=== PATIENT | female | born 1935 | race Caucasian/White ===

== ENCOUNTER 2016-05-18 13:30 | Outpatient (RCR) | payer MEDICARE ==
[~2016-05-18 13:30] MED LIST: ALPR0.25 PO; ASPI-587 PO; CALCIUM; DOCU100T7 PO; LUTEIN; MECLIZINE; MULT-974 PO; NFPRILOC40 PO; ONDA8TAB9 SL; PROP10TA8 PO; SELENIUM; SUCR1TAB PO; TRAM-21 PO; TYLENOL
--- NOTE | 2016-05-18 14:07 | Diagnostic Imaging Report ---
INDICATION: Preop screening prior to surgery for trigeminal neuralgia. PA and lateral views of the chest were obtained. Comparison is made with prior examination from 01/21/16. FINDINGS: The heart size, mediastinal configuration, and pulmonary vascularity are within normal limits. There is no pleural effusion, pneumothorax, or pneumonia. The osseous structures are unremarkable. IMPRESSION: No acute cardiopulmonary abnormality. Dictated by: Dictated on workstation # [id number]
[2016-05-18 15:24] LABS: BASOPHILS % (AUTO) 1 % (0-10); EOSINOPHILS # (AUTO) 0.2 10^3/uL (0.0-0.3); EOSINOPHILS % (AUTO) 3 % (0-10); LYMPHOCYTES # (AUTO) 2.2 X 10^3 (1.0-4.0); LYMPHOCYTES % (AUTO) 37 % (12-44); MEAN CORPUSCULAR HEMOGLOBIN 30 PG (25-34); MEAN CORPUSCULAR HGB CONC 33 G/DL (32-36); MEAN CORPUSCULAR VOLUME 90 FL (80-99); MEAN PLATELET VOLUME 9.5 FL (7.4-10.4); MONOCYTES # (AUTO) 0.5 X 10^3 (0.0-1.0); MONOCYTES % (AUTO) 8 % (0-12); NEUTROPHILS # (AUTO) 3.1 X 10^3 (1.8-7.8); NEUTROPHILS % (AUTO) 52 % (42-75); PLATELET COUNT 235 10^3/uL (130-400); RED CELL DISTRIBUTION WIDTH 12.4 % (10.0-14.5)
[2016-05-18 15:41] LABS: ALANINE AMINOTRANSFERASE 7 U/L (0-55); ALBUMIN 4.6 G/DL (3.2-4.5); ANION GAP 10 MMOL/L (5-14); ASPARTATE AMINO TRANSFERASE 23 U/L (5-34); BILIRUBIN,TOTAL 0.3 MG/DL (0.1-1.0); BLOOD UREA NITROGEN 9 MG/DL (7-18); BUN/CREATININE RATIO 13; CARBON DIOXIDE 26 MMOL/L (21-32); CHLORIDE 97 MMOL/L (98-107); CREATININE SERUM 0.67 MG/DL (0.60-1.30); GFR ESTIMATED > 60; GLUCOSE 109 MG/DL (70-105); SODIUM 133 MMOL/L (135-145); TOTAL PROTEIN 7.2 G/DL (6.4-8.2)
== END 2016-08-16 | disposition home or self-care (01) ==
LOC: LAB 13:30 → EDSTATUS 13:30
PROVIDERS: ATTEND Family Medicine
DX: G50.0 Trigeminal neuralgia (principal); G40.409 Other generalized epilepsy and epileptic syndromes, not intractable, without status epilepticus
CPT/HCPCS: 36415; 71020; 80053; 85025; 93005

== ENCOUNTER → 2017-03-17 | Outpatient (CLI) | payer MEDICARE ==
[~2017-03-17] MED LIST changes: +GADOBUTROL 7.5 MMOL/7.5 ML (GADAVIST) VIAL IV ONE
--- NOTE | 2017-03-17 10:45 | Diagnostic Imaging Report ---
PROCEDURE: MR imaging of the brain with and without contrast. TECHNIQUE: Multiplanar, multisequence MR imaging of the brain was performed with and without contrast. INDICATION: History of melanoma. Right ear and neck pain. Right trigeminal neuralgia. 6 mL of Gadavist is administered intravenously. FINDINGS: There is no diffusion restriction to suggest an acute infarct or other diffusion abnormality. There is mild periventricular and deep white matter T2 hyperintense signal abnormalities without associated edema or mass effect. No associated contrast enhancement seen either. These are somewhat similar to 12/24/2015 without a notable change. No enhancing mass in the brain or extra-axial space to suggest metastatic disease. The central vascular flow-voids appear grossly unremarkable. The internal auditory canals and inner ear structures appear grossly unremarkable. No obvious abnormality in the brainstem or around it seen. This area however is better evaluated when the study is ordered with brain and IAC MRI. The pituitary gland is normal in size. No hypothalamic or pineal region mass. The orbits appear symmetric. The paranasal sinuses appear generally clear. IMPRESSION: Chronic white matter findings described are probably related to chronic microvascular ischemic changes with no acute infarct, or enhancing mass. Dictated by: Dictated on workstation # [id number]
== END ==
LOC: RAD 08:32
PROVIDERS: ATTEND Nurse Practitioner Family
DX: M54.2 Cervicalgia (principal); G50.0 Trigeminal neuralgia; Z85.820 Personal history of malignant melanoma of skin
CPT/HCPCS: 70553

== ENCOUNTER → 2017-07-20 | Outpatient (CLI) | payer MEDICARE ==
[~2017-07-20] MED LIST changes: -GADOBUTROL 7.5 MMOL/7.5 ML (GADAVIST) VIAL IV ONE
== END ==
LOC: CARD 10:02
PROVIDERS: ATTEND Internal Medicine Cardiovascular Disease
DX: I08.1 Rheumatic disorders of both mitral and tricuspid valves (principal); R09.89 Other specified symptoms and signs involving the circulatory and respiratory systems; K21.9 Gastro-esophageal reflux disease without esophagitis; Z83.3 Family history of diabetes mellitus; Z82.49 Family history of ischemic heart disease and other diseases of the circulatory system
CPT/HCPCS: 93306

== ENCOUNTER → 2017-07-21 | Outpatient (CLI) | payer MEDICARE ==
[~2017-07-21] MED LIST changes: +CATHETER FLUSH 10 ML SYR IV PRN; +REGADENOSON 0.4 MG/5 ML SYR (LEXISCAN) IV ONE
[2017-07-21 10:11] VITALS: BP 160/95
[2017-07-21 10:16] VITALS: BP 162/93
--- NOTE | 2017-07-21 21:18 | STRESS TEST ---
DATE OF SERVICE: 07/21/2017 LEXISCAN MYOVIEW STRESS TEST REPORT Baseline heart rate is 69, baseline blood pressure 170/95. Baseline EKG is sinus rhythm with no ischemic changes. In summary, the patient was injected with 10.66 mCi of technetium-99 Myoview and the resting images were obtained. Then, the patient received 0.4 mg of Lexiscan followed by 30.4 mCi of technetium-99 Myoview. Throughout the test, there were no EKG changes. The resting and stress images were reviewed and compared in the short axis, horizontal long axis, and vertical long axis views. Review of the images showed breast attenuation with apical thinning. There is no significant ischemia or infarction. SSS is 2, SDS 0. TID value 1.07. On the gated images, the left ventricle appeared to be normal size with normal contractility. Calculated ejection fraction 60%. CONCLUSION: 1. The patient tolerated Lexiscan well. 2. Typical female pattern with no significant ischemia or infarction on SPECT images. 3. Normal left ventricular size with normal contractility. Calculated ejection fraction 60%. Job ID: [id number] DocumentID: [id number] Dictated Date: 07/21/2017 15:52:02 Ruffler Date: 07/21/2017 21:17:25 Dictated By: JOSE VALDEZ MD
== END ==
LOC: CARD 08:07
PROVIDERS: ATTEND Internal Medicine Cardiovascular Disease
DX: R09.89 Other specified symptoms and signs involving the circulatory and respiratory systems (principal); K21.9 Gastro-esophageal reflux disease without esophagitis; Z82.49 Family history of ischemic heart disease and other diseases of the circulatory system; Z83.3 Family history of diabetes mellitus
CPT/HCPCS: 78452; 93017

== ENCOUNTER → 2017-07-26 | Outpatient (CLI) | payer MEDICARE ==
[~2017-07-26] MED LIST changes: -CATHETER FLUSH 10 ML SYR IV PRN; -REGADENOSON 0.4 MG/5 ML SYR (LEXISCAN) IV ONE
--- NOTE | 2017-07-26 10:04 | Diagnostic Imaging Report ---
EXAM: Ultrasound abdomen, limited. DATE: 07/26/2017. COMPARISON: None. INDICATION: 82-year-old female, right inguinal and lower quadrant pain. PROCEDURE: Two-dimensional grayscale images of the right inguinal region and right lower quadrant were obtained. Color Doppler images also provided. FINDINGS: There is a right inguinal lymph node with unremarkable lymph node morphology measuring 0.9 x 2.4 x 1.1 cm in size. There is no identified fluid collection or otherwise noted mass in the right inguinal region. The appendix is not demonstrated in the right lower quadrant. There is no demonstrated free fluid in the right lower quadrant. There is no demonstrated hernia. IMPRESSION: 1. Grossly unremarkable appearing right inguinal lymph node measuring up to 9 mm in short axis. 2. Additional ultrasound evaluation of the right inguinal region and right lower quadrant is unremarkable. 3. The appendix is not visualized. Dictated by: Dictated on workstation # [id number]
== END ==
LOC: RAD 09:01
PROVIDERS: ATTEND Nurse Practitioner Family
DX: R10.31 Right lower quadrant pain (principal)
CPT/HCPCS: 76705